=== PATIENT | male | born 1985 | race Two or more races ===

== ENCOUNTER → 2018-07-24 | Outpatient (CLI) | payer OTHER | END | disposition home or self-care (01) | LOC: CARD 10:12 | PROVIDERS: ATTEND Family Medicine | DX: S61.501D Unspecified open wound of right wrist, subsequent encounter (principal); R20.0 Anesthesia of skin; M62.81 Muscle weakness (generalized); M79.2 Neuralgia and neuritis, unspecified; W45.8XXD Other foreign body or object entering through skin, subsequent encounter | CPT/HCPCS: 95886; 95908 ==